=== PATIENT | female | born 1990 | race Caucasian/White ===

== ENCOUNTER 2024-01-06 00:10 | Inpatient (IN) | payer BC ==
[2024-01-06] MEDS: Lactated Ringers 1,000 ML IV SCH (00:35)
[2024-01-06] MEDS ORDERED: Misoprostol 200 MCG Tab PO PRN (00:47)
[2024-01-06] MEDS ORDERED: Ondansetron 4 MG/2 ML SDV IVPUSH PRN (00:47)
[2024-01-06] MEDS ORDERED: Butorphanol 2 MG/ML SDV IVPUSH PRN (00:47)
[2024-01-06] MEDS ORDERED: Tranexamic Acid IN NACL,ISO-OS 1,000 MG in Premix Bag 1 BAG IV PRN ×2 (00:47→11:00)
[2024-01-06] MEDS ORDERED: Carboprost Tromethamine 250 MCG/1 mL Vial IM PRN (00:47)
[2024-01-06] MEDS ORDERED: Terbutaline 1 MG/ML SDV SUBCUT PRN (00:47)
[2024-01-06] MEDS ORDERED: Lidocaine 1% 50 ML MDV INJECT PRN (00:47)
[2024-01-06] MEDS ORDERED: Sodium Chloride 0.9% 10 ML Syringe FLUSH PRN (00:47)
[2024-01-06] MEDS ORDERED: Sodium Chloride 0.9% 2.5 ML Syringe FLUSH PRN (00:47)
[2024-01-06] MEDS ORDERED: Sodium Chloride 0.9% 20 ML SDV IV PRN (00:47)
[2024-01-06] MEDS ORDERED: Water For Irrigation,Sterile 1,000 ML Container IRR PRN (00:47)
[2024-01-06] MEDS ORDERED: Methylergonovine 0.2 MG/1 ML Amp IM PRN (00:47)
[2024-01-06] MEDS ORDERED: Oxytocin/0.9 % Sodium Chloride 30 UNIT/500 ML BAG IV SCH (01:00)
[2024-01-06 01:50] LABS: HEMATOCRIT 38.1 % (37.0-47.0); HEMOGLOBIN 13.4 g/dL (12.0-16.0); MEAN CORPUSCULAR HEMOGLOBIN 31.8 pg (28.0-32.0); MEAN CORPUSCULAR HGB CONC 35.2 g/dL (32.0-36.0); MEAN CORPUSCULAR VOLUME 90.5 fL (83.0-99.0); MEAN PLATELET VOLUME 12.3 fL (9.4-12.3); PLATELET COUNT,PLT 203 K/uL (150-400); RED BLOOD CELL COUNT 4.21 M/uL (4.10-5.30); WHITE BLOOD CELL COUNT,WBC 8.58 K/uL (3.9-11.3)
[2024-01-06] MEDS: Misoprostol 25 MCG (1/4 of 100 MCG) Tab PO SCH (02:39)
[2024-01-06] MEDS ORDERED: ePHEDrine 50 MG/ML SDV IVPUSH PRN ×2 (08:14)
[2024-01-06] MEDS ORDERED: Bupivacaine 0.5% 10 ML SDV ONE (09:23)
[2024-01-06] MEDS: Ropivacaine HCl/PF 400 MG in Premix Bag 1 BAG EPIDUR SCH (09:36)
[2024-01-06] MEDS: Phenylephrine HCl In 0.9% NaCl 1 MG/10 ML Syringe IVPUSH PRN (10:34)
[2024-01-06] MEDS: Oxytocin/0.9 % Sodium Chloride 30 UNIT/500 ML BAG IV SCH (10:48)
[2024-01-06] MEDS ORDERED: Methylergonovine 0.2 MG Tab PO PRN (11:00)
[2024-01-06] MEDS ORDERED: Lanolin 100% Cream 7 GM Tube TOP PRN (11:00)
[2024-01-06] MEDS ORDERED: Docusate Sodium 100 MG Cap PO PRN (11:00)
[2024-01-06 11:27] LABS: PH,UMBILICAL ARTERIAL 7.26 (7.18-7.38); PH,UMBILICAL VENOUS 7.32 (7.25-7.45)
[2024-01-07] MEDS: Ibuprofen 800 MG Tab PO PRN (04:06)
[2024-01-07] MEDS: Witch Hazel Medicated Pads 40/Jar TOP PRN (04:07)
[2024-01-07] MEDS: Benzocaine/Menthol 20%-0.5% Spray 78 GM Cannister TOP PRN (04:07)
[2024-01-07 06:25] LABS: HEMATOCRIT 33.7 % (37.0-47.0); HEMOGLOBIN 11.6 g/dL (12.0-16.0)
[2024-01-08] MEDS: Acetaminophen 500 MG Tab PO PRN (08:00)
[2024-01-08] MEDS: Measles, Mumps & Rubella Vaccine 0.5 ML SDV SUBCUT ONE (10:33)
== END 2024-01-08 10:48 | disposition home or self-care (01) | DRG 560 ==
LOC: MW.OB 00:10 → OBSVTOIN 11:00 → MW.OB 11:00
PROVIDERS: ADMIT Obstetrics & Gynecology; ATTEND Obstetrics & Gynecology
PROC: 10E0XZZ Delivery of Products of Conception, External Approach (ICD-10-PCS; principal; 2024-01-06)
PROC: 3E0R3BZ Introduction of Anesthetic Agent into Spinal Canal, Percutaneous Approach (ICD-10-PCS; 2024-01-06)
PROC: 00HU33Z Insertion of Infusion Device into Spinal Canal, Percutaneous Approach (ICD-10-PCS; 2024-01-06)
PROC: 3E0P7VZ Introduction of Hormone into Female Reproductive, Via Natural or Artificial Opening (ICD-10-PCS; 2024-01-06)
PROC: 3E0134Z Introduction of Serum, Toxoid and Vaccine into Subcutaneous Tissue, Percutaneous Approach (ICD-10-PCS; 2024-01-06)
DX: O36.5930 Maternal care for other known or suspected poor fetal growth, third trimester, not applicable or unspecified (principal); Z37.0 Single live birth; Z3A.38 38 weeks gestation of pregnancy; Z23 Encounter for immunization
CPT/HCPCS: 01967; 36415; 51702; 59025; 59409; 82803; 85014; 85018; 85027; 86592; 86850; 86900; 86901; 90707; A9270-GY; J0665; J2371; J2590; J2795; J7120